=== PATIENT | female | born 2000 | race Caucasian/White ===

== ENCOUNTER 2018-01-15 12:50 | Emergency (ER) | payer OTHER ==
[2018-01-15 13:01] VITALS: BP 113/64; PULSE 76; TEMP 98.4; BMI 18.6
--- NOTE | 2018-01-15 13:35 | PDOC ---
History of Present Illness - General Chief Complaint: Pain Stated Complaint: ABD PAIN, NAUSEA Time Seen by Provider: 01/15/18 13:34 - History of Present Illness Initial Comments: 01/15/18 13:34 Ms. Stroud is a 17 yo female w/ no significant pmh who presents for evaluation of 1 month history of intermittent bilateral lower abdominal pain with meals and intermittent diarrhea. She reports she is lactose intolerant however has these episodes when she has eaten various foods consisting of vegetable, meat, protein, grains, etc. Ms. Stroud also reports she has been attempting to gain weight using protein drinks, however, again has the pain instances no matter what she is eating. She denies being sexually active or any alcohol or drug use. The patient denies chest pain, shortness of breath, headache and dizziness. Denies fever, chills, nausea, vomit, and constipation. Denies dysuria, frequency , urgency and hematuria. Allergies: NKDA Past History - Past Medical History Allergies/Adverse Reactions: Allergies Allergy/AdvReac Type Severity Reaction Status Date / Time No Known Allergies Allergy Verified 01/15/18 12:57 Home Medications: Ambulatory Orders NK [No Known Home Medication] 12/10/15 COPD: No Other medical history: lactose intolerance - Immunization History Td Vaccination: Yes Immunization Up to Date: Yes - Suicide/Smoking/Psychosocial Hx Smoking Status: No Smoking History: Never smoked Years of Tobacco Use: 0 Have you smoked in the past 12 months: No Number of Cigarettes Smoked Daily: 0 Cigars Per Day: 0 Information on smoking cessation initiated: No Hx Alcohol Use: No Drug/Substance Use Hx: No Substance Use Type: None Review of Systems - Review of Systems Comments:: 01/15/18 13:34 GENERAL/CONSTITUTIONAL: No fever or chills. No weakness. HEAD, EYES, EARS, NOSE AND THROAT: No change in vision. No ear pain or discharge. No sore throat. CARDIOVASCULAR: No chest pain or shortness of breath RESPIRATORY: No cough, wheezing, or hemoptysis. GASTROINTESTINAL: +Intermittent bilateral abdominal pain and occasional diarrhea with meals. No nausea, vomiting, or constipation. GENITOURINARY: No dysuria, frequency, or change in urination. MUSCULOSKELETAL: No joint or muscle swelling or pain. No neck or back pain. SKIN: No rash NEUROLOGIC: No headache, vertigo, loss of consciousness, or change in strength/ sensation. ENDOCRINE: No increased thirst. No abnormal weight change HEMATOLOGIC/LYMPHATIC: No anemia, easy bleeding, or history of blood clots. ALLERGIC/IMMUNOLOGIC: No hives or skin allergy. *Physical Exam - Vital Signs Last Vital Signs Temp Pulse Resp BP Pulse Ox 98.4 F 76 18 113/64 100 01/15/18 12:57 01/15/18 12:57 01/15/18 12:57 01/15/18 12:57 01/15/18 12:57 - Physical Exam Comments: 01/15/18 13:34 GENERAL: Awake, alert, and fully oriented, in no acute distress HEAD: No signs of trauma, normocephalic, atraumatic EYES: PERRLA, EOMI, sclera anicteric, conjunctiva clear ENT: Auricles normal inspection, hearing grossly normal, nares patent, oropharynx clear without exudates. Moist mucosa NECK: Normal ROM, supple, no lymphadenopathy, JVD, or masses LUNGS: No distress, speaks full sentences, clear to auscultation bilaterally HEART: Regular rate and rhythm, normal S1 and S2, no murmurs, rubs or gallops, peripheral pulses normal and equal bilaterally. ABDOMEN: +LLQ TTP. Soft, normoactive bowel sounds. No guarding, no rebound. No masses EXTREMITIES: Normal inspection, Normal range of motion, no edema. No clubbing or cyanosis. NEUROLOGICAL: Cranial nerves II through XII grossly intact. Normal speech, normal gait, no focal sensorimotor deficits SKIN: Warm, Dry, normal turgor, no rashes or lesions noted. : No CMT, no adnexal tenderness, no masses. Os closed, patient reporting discomfort with palpation in the midline. ED Treatment Course - LABORATORY CBC & Chemistry Diagram: 01/15/18 15:30 01/15/18 15:30 Medical Decision Making - Medical Decision Making 01/15/18 18:21 Ms. Stroud is a 17 yo female w/ pmh as described who presents for evaluation of abdominal pain and diarrhea. Physical exam significant for midline pelvic discomfort w/out evidence of mass, bleeding, CMT, or torsion. CT abdomen ordered for further evaluation. Appendix normal in appearance; no evidence of appendicitis. Small amount of free fluid noted in pelvis on right consistent with a transudate. May be physiologic in nature. Also mildly prominent mesenteric lymph nodes c/w with mesenteric adenitis and mild asymmetric prominence of left gonadal veins. No acute process suspected at this time. Discharging patient with instructions to follow-up with GI outpatient. Discussed findings with patient and mother who verbalized understanding and agreement and will comply. *DC/Admit/Observation/Transfer Diagnosis at time of Disposition: Abdominal pain Qualifiers: Abdominal location: unspecified location Qualified Code(s): R10.9 - Unspecified abdominal pain Diarrhea Qualifiers: Diarrhea type: unspecified type Qualified Code(s): R19.7 - Diarrhea, unspecified - Discharge Dispostion Disposition: HOME - Referrals Referrals: Reginald Jacobs MD [Staff Physician] - - Patient Instructions Printed Discharge Instructions: DI for Abdominal Pain-Adult, DI for Diarrhea and Traveler's Diarrhea -- Adult Additional Instructions: Please follow-up with Gastroenterology as discussed with provide contact information for Dr. Jacobs. Return to ER if any increase in pain, fever, chills, or other concerning symptoms. We hope you feel better soon. - Post Discharge Activity
--- NOTE | 2018-01-15 14:48 | PDOC ---
Attending Attestation - HPI HPI: 01/15/18 14:59 The patient is a 17 year old female with no significant PMH of lactose intolerance who presents to the emergency department with intermittent lower abdominal pain and diarrhea beginning approximately 1 month ago. The patient states she only develops lower abdominal pain when she eats with associated diarrhea. The patient reports she has been actively trying to gain weight recently and has been eating protein powders but denies consuming any products containing lactose. Allergies: NKA - Physicial Exam PE: 01/15/18 14:59 Vitals: Triage Vital signs reviewed General Appearance: no acute distress, well nourished well developed, Cardiac: Regular rate and rhythm, no murmurs, no rubs, no gallops, Lungs: Clear to auscultation bilateral, good air movement bilaterally, Abdomen: (+) Diffuse lower abdominal tenderness. Soft, nondistended, normal bowel sounds. Extremities: Full range of motion to all extremities, no cyanosis, clubbing, or edema Skin: Warm and dry, no rashes or lesions, no petechiae Neuro: AOX3; Cranial Nerves 2-12 grossly intact, Strength intact to all extremities, Sensation intact to all extremities Psych: normal mood, normal affect - Medical Decision Making 01/15/18 14:59 The patient is a 17 year old female with no significant PMH of lactose intolerance who presents to the emergency department with intermittent lower abdominal pain and diarrhea beginning approximately 1 month ago. The patient states she only develops lower abdominal pain when she eats with associated diarrhea. The patient reports she has been actively trying to gain weight recently and has been eating protein powders but denies consuming any products containing lactose. Allergies: NKA <Dusty Morocho - Last Filed: 01/15/18 14:59> - Resident Resident Name: Robert Christina - ED Attending Attestation I have performed the following: I have examined & evaluated the patient, The case was reviewed & discussed with the resident, I agree w/resident's findings & plan, Exceptions are as noted - Medical Decision Making 17 years old muscular past medical history with 1 month of intermittent abdominal pain now persistent constant lower abdominal discomfort. Pain is not maximal on pelvic exam there was no CMT Agrees with residence examination Given right lower quadrant pain CAT scan ordered which demonstrates no acute pathology just mesenteric adenitis. Findings discussed length with patient. Patient provided with GI follow-up Findings, need for follow-up and strict return instructions discussed with patient. <Basilio Gonzalez - Last Filed: 01/15/18 18:26>
[2018-01-15] MEDS ORDERED: SODIUM CHLORIDE 0.9% 1000 ML INFUS.BAG IV ONE (14:57)
[2018-01-15 15:43] LABS: BASO % 0.7 % (0-2.0); EOS % 13.5 % (0-4.5); HEMATOCRIT 43.7 % (32.4-45.2); HEMOGLOBIN 14.5 GM/dL (10.7-15.3); LYMPH % 30.8 % (8-40); MCH 30.3 pg (25.7-33.7); MCHC 33.2 g/dl (32.0-36.0); MEAN CELL VOLUME 91.3 fl (80-96); MEAN PLT VOLUME 7.9 fl (7.5-11.1); MONO % 6.8 % (3.8-10.2); NEUT % 48.2 % (42.8-82.8); PLATELET COUNT 260 K/MM3 (134-434); RBC 4.79 M/mm3 (3.60-5.2); RDW 12.8 % (11.6-15.6); WHITE BLOOD COUNT 7.7 K/mm3 (4.0-10.0)
[2018-01-15 15:45] LABS: URINE APPEARANCE CLEAR; URINE BILIRUBIN NEGATIVE (<2.0 mg/dL); URINE COLOR STRAW; URINE GLUCOSE (UA) NEGATIVE (NEGATIVE); URINE KETONE NEGATIVE (NEGATIVE); URINE LEUK ESTERASE NEGATIVE (NEGATIVE); URINE NITRITE NEGATIVE (NEGATIVE); URINE PROTEIN NEGATIVE (NEGATIVE); URINE UROBILINOGEN NEGATIVE mg/dL (0.2-1.0)
[2018-01-15 15:47] LABS: HCG,QUALITATIVE URINE NEGATIVE
[2018-01-15 16:03] LABS: ANION GAP 7 (8-16); BLOOD UREA NITROGEN 13 mg/dL (7-18); CALCIUM 8.8 mg/dL (8.5-10.1); CHLORIDE 105 mmol/L (98-107); CO2 27 mmol/L (21-32); CREATININE 0.6 mg/dL (0.55-1.02); GLUCOSE,RANDOM 84 mg/dL (74-106); POTASSIUM 4.2 mmol/L (3.5-5.1); SODIUM 139 mmol/L (136-145)
== END 2018-01-15 18:31 | disposition home or self-care (01) ==
LOC: JER 12:50
DX: R10.30 Lower abdominal pain, unspecified (principal); E73.9 Lactose intolerance, unspecified
CPT/HCPCS: 36415; 74177-TC; 80048; 81003; 84703; 85025; 99284-25; J7030

== ENCOUNTER 2019-09-20 18:38 | Emergency (ER) | payer OTHER ==
[2019-09-20 18:51] VITALS: BP 120/82; PULSE 84; TEMP 98.4; BMI 18.3
== END 2019-09-20 23:55 | disposition home or self-care (01) ==
LOC: JERFT 18:38
PROC: 3E033NZ Introduction of Analgesics, Hypnotics, Sedatives into Peripheral Vein, Percutaneous Approach (ICD-10-PCS; principal; 2019-09-20)
PROC: 3E033GC Introduction of Other Therapeutic Substance into Peripheral Vein, Percutaneous Approach (ICD-10-PCS; 2019-09-20)
DX: A08.4 Viral intestinal infection, unspecified (principal); B97.89 Other viral agents as the cause of diseases classified elsewhere
CPT/HCPCS: 99281-25

== ENCOUNTER 2019-09-20 21:11 | Emergency (ER) | payer OTHER ==
[2019-09-20 21:19] VITALS: BP 102/70; PULSE 72; TEMP 98.3; BMI 18.3
[2019-09-20] MEDS ORDERED: ACETAMINOPHEN 1000 MG/100 ML VIAL (NON FORMULARY) IVPB ONE (21:27)
[2019-09-20] MEDS ORDERED: ONDANSETRON 4 MG/2 ML VIAL IVPB ONE (21:27)
[2019-09-20] MEDS ORDERED: SODIUM CHLORIDE 1,000 ML IV STA (21:27)
[2019-09-20] MEDS ORDERED: ONDANSETRON 4 MG/2 ML VIAL ONE (21:30)
[2019-09-20] MEDS ORDERED: ACETAMINOPHEN INJECTION 100 ML IVPB ONE (21:30)
--- NOTE | 2019-09-20 21:56 | PDOC ---
Documentation entered by Isabell Swift SCRIBE, acting as scribe for Lloyd Sahu MD. Llody Sahu MD: This documentation has been prepared by the eusebiaibe, Isabell Swift SCRIBE, under my direction and personally reviewed by me in its entirety. I confirm that the documentation accurately reflects all work, treatment, procedures, and medical decision making performed by me. History of Present Illness - General Chief Complaint: Pain Stated Complaint: I have Pain in my stomach History Source: Patient Exam Limitations: No Limitations - History of Present Illness Initial Comments: 09/20/19 21:34 The patient is a 19-year-old female with a past medical history significant for pancreatitis who presents to the emergency department with abdominal pain, nausea, chills, and diarrhea. The patient presents with two days of diarrhea ( reports having two episodes today), nausea, chills, and right sided abdominal pain that's constant in nature. The patient reports the pain isnt similar to prior pancreatitis episode. Allergies: NKA Social history: No reported use of tobacco, alcohol or recreational drugs. Surgical history: Denies surgical history. PCP: Dr. Randi Cavazos Past History - Past Medical History Allergies/Adverse Reactions: Allergies Allergy/AdvReac Type Severity Reaction Status Date / Time No Known Allergies Allergy Verified 09/20/19 21:22 Home Medications: Ambulatory Orders NK [No Known Home Medication] 12/10/15 COPD: No - Immunization History Td Vaccination: Yes Immunization Up to Date: Yes - Psycho Social/Smoking Cessation Hx Smoking Status: No Smoking History: Never smoked Years of Tobacco Use: 0 Have you smoked in the past 12 months: No Number of Cigarettes Smoked Daily: 0 Cigars Per Day: 0 Hx Alcohol Use: No Drug/Substance Use Hx: No Substance Use Type: None Review of Systems - Review of Systems Able to Perform ROS?: Yes Comments:: 09/20/19 21:34 GENERAL/CONSTITUTIONAL: +chills, No fever. No weakness. HEAD, EYES, EARS, NOSE AND THROAT: No change in vision. No ear pain or discharge. No sore throat. CARDIOVASCULAR: No chest pain, no shortness of breath, no loss of consciousness RESPIRATORY: No cough, wheezing, or hemoptysis. GASTROINTESTINAL: +abdominal pain, nausea and diarrhea. Denies vomiting or constipation. GENITOURINARY: No dysuria, frequency, or change in urination. MUSCULOSKELETAL: No joint or muscle swelling or pain. No neck or back pain. SKIN: No rash NEUROLOGIC: No vertigo, no change in strength/sensation. ENDOCRINE: No increased thirst. No abnormal weight change. HEMATOLOGIC/LYMPHATIC: No anemia, easy bleeding, or history of blood clots. ALLERGIC/IMMUNOLOGIC: No hives or skin allergy. *Physical Exam - Physical Exam 09/20/19 21:35 GENERAL: Awake, alert, and fully oriented, in no acute distress. HEAD: No signs of trauma EYES: PERRLA, EOMI, sclera anicteric, conjunctiva clear ENT: Auricles normal inspection, hearing grossly normal, nares patent, oropharynx clear without exudates. Moist mucosa NECK: Nontender, no stepoffs, Normal ROM, supple, no lymphadenopathy, JVD, or masses LUNGS: Breath sounds equal, clear to auscultation bilaterally. No wheezes, and no crackles HEART: Regular rate and rhythm, normal S1 and S2, no murmurs, rubs or gallops ABDOMEN: +RLQ tenderness, Soft, normoactive bowel sounds. No guarding, no rebound. No masses EXTREMITIES: Normal range of motion, no edema. No clubbing or cyanosis. No cords , erythema, or tenderness NEUROLOGICAL: Cranial nerves II through XII intact. 5/5 strength and sensation in all extremities, Normal speech, normal gait, normal cerebellar function SKIN: Warm, Dry, normal turgor, no rashes or lesions noted. ED Treatment Course - LABORATORY CBC & Chemistry Diagram: 09/20/19 21:30 09/20/19 21:30 Medical Decision Making - Medical Decision Making 09/20/19 21:58 19 F with nausea, abdominal pain, diarrhea. Likely viral gastroenteritis. However, given tenderness in RLQ, will r/o appendicitis. - Labs - UA, UPT - CTAP - GI cocktail 09/20/19 23:[address] unremarkable Pt tolerating PO Pt is well appearing, with normal vitals. Clinically stable for DC at this time. I discussed the physical exam findings, ancillary test results and final diagnoses with the patient. I answered all of the patient's questions. The patient was satisfied with the care received and felt comfortable with the discharge plan and treatment plan. The patient agrees to follow up with the primary care physician within 24-72 hours. Discharge - Discharge Information Problems reviewed: Yes Clinical Impression/Diagnosis: Diarrhea, Abdominal pain, Nausea Disposition: HOME - Follow up/Referral Referrals: Jamil Cavazos MD [Primary Care Provider] - - Patient Discharge Instructions Patient Printed Discharge Instructions: DI for Viral Gastroenteritis -- Adult Additional Instructions: Your symptoms are likely due to a viral infection. Drink plenty of fluids and take tylenol or motrin as needed for fevers and pain. If you experience worsening abdominal pain, pain in your right lower abdomen, severe nausea or vomiting, or any other concerning symptoms, return to the ER immediately. Otherwise, follow up with your primary doctor within 1 week. - Post Discharge Activity
[2019-09-20 22:08] LABS: BASO % 1.3 % (0-2.0); EOS % 3.8 % (0-4.5); HEMATOCRIT 40.7 % (32.4-45.2); HEMOGLOBIN 13.9 GM/dl (10.7-15.3); MCH 31.4 pg (25.7-33.7); MCHC 34.1 g/dl (32.0-36.0); MEAN PLT VOLUME 8.2 fl (7.5-11.1); MONO % 6.2 % (3.8-10.2); NEUT % 46.7 % (42.8-82.8); PLATELET COUNT 269 K/MM3 (134-434); RBC 4.42 M/mm3 (3.60-5.2); RDW 12.2 % (11.6-15.6); WHITE BLOOD COUNT 6.5 K/mm3 (4.0-10.8)
[2019-09-20 22:24] LABS: ALBUMIN 4.4 g/dl (3.4-5.0); BILIRUBIN,TOTAL 0.9 mg/dl (0.2-1); CALCIUM 8.8 mg/dl (8.5-10); CREATININE 0.5 mg/dl (0.55-1.3); POTASSIUM 4.1 mmol/L (3.5-5.1)
== END 2019-09-20 23:58 | disposition home or self-care (01) ==
LOC: FER 21:11 → SUPCPDRO 21:11 → FER 23:58
PROC: 3E033NZ Introduction of Analgesics, Hypnotics, Sedatives into Peripheral Vein, Percutaneous Approach (ICD-10-PCS; principal; 2019-09-20)
PROC: 3E033GC Introduction of Other Therapeutic Substance into Peripheral Vein, Percutaneous Approach (ICD-10-PCS; 2019-09-20)
DX: R10.9 Unspecified abdominal pain (principal); R11.0 Nausea; R19.7 Diarrhea, unspecified
CPT/HCPCS: 36415; 74177-TC; 80053; 81003; 83690; 84703; 85025; 96374; 96375; 99283-25; J0131; J7030; Q9967

== ENCOUNTER 2020-07-09 05:06 | Day surgery (SDC) | payer OTHER ==
[2020-07-08 10:58] VITALS: BMI 18.3
[2020-07-09 09:57] VITALS: TEMP 97.7
[2020-07-09 11:04] VITALS: BP 106/67; PULSE 60
== END 2020-07-09 11:20 | disposition home or self-care (01) ==
LOC: JASU-ENDO 05:06
PROVIDERS: ATTEND Internal Medicine Gastroenterology
PROC: 0DB68ZX Excision of Stomach, Via Natural or Artificial Opening Endoscopic, Diagnostic (ICD-10-PCS; principal; 2020-07-09 10:00)
DX: K29.50 Unspecified chronic gastritis without bleeding (principal)
CPT/HCPCS: 81025; 88305-TC; 88342-TC

== ENCOUNTER 2024-03-13 08:22 | Emergency (ER) | payer BC ==
[2024-03-13] MEDS ORDERED: ONDANSETRON 4 MG/2 ML VIAL ONE (09:01)
[2024-03-13 09:23] VITALS: BP 107/87; PULSE 74; RESP 20; TEMP 98.1; BMI 21.0
[2024-03-13] MEDS: SODIUM CHLORIDE 1,000 ML IV ONE (09:25)
[2024-03-13] MEDS: ONDANSETRON 4 MG/2 ML VIAL IVPUSH ONE (09:25)
[2024-03-13 09:29] LABS: HCG,QUALITATIVE URINE Negative
[2024-03-13 09:41] LABS: HEMATOCRIT 42.1 % (32.4-45.2); HEMOGLOBIN 13.7 G/dL (10.7-15.3); MCH 29.8 pg (25.7-33.7); MCHC 32.6 g/dl (32.0-36.0); MEAN CELL VOLUME 91.3 fl (80-96); MEAN PLT VOLUME 7.3 fl (7.5-11.1); PLATELET COUNT 253.4 10^3/uL (134-434); RBC 4.61 10^6/uL (3.60-5.2); RDW 13.1 % (11.6-15.6); WHITE BLOOD COUNT 5.7 10^3/uL (4.0-10.8)
[2024-03-13 10:15] LABS: ALBUMIN 3.9 g/dl (3.4-5.0); BILIRUBIN,TOTAL 0.5 mg/dl (0.2-1); CALCIUM 9.1 mg/dl (8.5-10.1); CREATININE 0.6 mg/dl (0.6-1.3); POTASSIUM 3.9 mmol/L (3.5-5.1)
[2024-03-13 10:18] LABS: PLATELET ESTIMATE ADEQUATE
[2024-03-13 10:54] LABS: INR 1.08 (0.83-1.09); PROTHROMBIN TIME (PATIENT) 12.3 SEC (9.7-13.0)
== END 2024-03-13 12:49 | disposition home or self-care (01) ==
LOC: FER 08:22
PROC: 3E03329 Introduction of Other Anti-infective into Peripheral Vein, Percutaneous Approach (ICD-10-PCS; principal; 2024-03-13)
PROC: 3E033GC Introduction of Other Therapeutic Substance into Peripheral Vein, Percutaneous Approach (ICD-10-PCS; 2024-03-13)
PROC: 3E0337Z Introduction of Electrolytic and Water Balance Substance into Peripheral Vein, Percutaneous Approach (ICD-10-PCS; 2024-03-13)
DX: R19.7 Diarrhea, unspecified (principal); M79.10 Myalgia, unspecified site; R11.0 Nausea; R10.9 Unspecified abdominal pain
CPT/HCPCS: 36415; 80053; 81003; 81015; 83690; 83735; 84703; 85027; 85610; 99284-25